=== PATIENT | male | born 1945 | race American Indian/Alaskan Native ===

== ENCOUNTER 2016-07-09 11:07 | Emergency (ER) | payer MEDICARE ==
[2016-07-09 11:53] VITALS: BP 170/91
[2016-07-09 14:10] LABS: Bilirubin,Urine NEG (Negative); Blood,Urine NEG (Negative); Ketones,Urine NEG (Negative); Leukocyte Esterase,Urine SM (Negative); Mucus,Urine FEW /HPF; Nitrite,Urine NEG (Negative); Protein,Urine <15 mg/dL mg/dL (Negative); Urobilinogen,Urine < 2.0 mg/dL (<2.0)
[2016-07-09] MEDS ORDERED: NORCO 5/325 PO ONE (14:35)
[2016-07-09] MEDS ORDERED: FLEXERIL PO ONE (14:35)
[2016-07-09] MEDS ORDERED: MOTRIN PO ONE (14:35)
--- NOTE | 2016-07-09 18:08 | Emergency Department Report ---
Entered by PARRIS GRUBBS, acting as scribe for CARLINE SMITH PA. ED Back Pain/Injury HPI - General Chief Complaint: Back Pain/Injury Stated Complaint: BACK PAIN Time Seen by Provider: 07/09/16 13:07 Source: patient Limitations: No Limitations - History of Present Illness Initial Comments: 70 year old male with PMHx chronic back pain presents to the ED for evaluation of intermittent sharp right low back pain for 1 week. Present epsiode began after lifting a heavy object; he describes pain as intermittent, sharp pain and rates discomfort as a 10/10 in severity. Initial back pain began post injury 1.5 years ago that was followed by orthopedic. Patient reports PCP Dr. Blanc manages pain Rx. Denies numbness, weakness, paresthesias. Denies bowel or bladder incontinence. Denies radiation of pain to legs, urinary symptoms, abdominal pain, chest pain, shortness of breath, fever, N/V. MD Complaint: back pain Onset/Timin -: week(s) Similar Symptoms Previously: Yes (chronic back pain secondary to injury 1.5 years ago) Place: home Radiation: none Severity scale (0 -10): 10 Quality: sharp Consistency: intermittent Context: while lifting (heavy object) Associated Symptoms: denies: weakness, chest pain, numbness, difficulty urinating, incontinence, fever/chills, abdominal pain, nausea/vomiting, shortness of breath Treatments Prior to Arrival: other (back brace, no OTC or Rx pain relievers) - Related Data Home Medications Medication Instructions Recorded Confirmed Last Taken Hydrochlorothiazide [HCTZ] 25 mg PO QDAY 12/30/14 12/30/14 Unknown Previous Rx's Medication Instructions Recorded Last Taken Type glipiZIDE [glipiZIDE ER] 5 mg PO QAM #30 tab.er.24 01/13/13 08/29/13 Rx Famotidine [Pepcid] 20 mg PO DAILY #8 tablet 08/30/13 Unknown Rx amLODIPine [Norvasc] 5 mg PO DAILY #30 tab 08/30/13 Unknown Rx Aspirin [Aspirin BABY CHEW TAB] 81 mg PO QDAY #30 tab.chew 01/01/15 Unknown Rx Simvastatin [Zocor TAB] 20 mg PO QHS #30 tablet 01/01/15 Unknown Rx Naproxen [Naprosyn] 500 mg PO BID #30 tablet 07/09/16 Unknown Rx Nitrofurantoin [place]/M-Cryst 100 mg PO Q12HR #10 capsule 07/09/16 Unknown Rx [Macrobid CAP] methOCARBAMOL [Robaxin TAB] 500 mg PO BID #14 tab 07/09/16 Unknown Rx Allergies Allergy/AdvReac Type Severity Reaction Status Date / Time Penicillins Allergy Rash Verified 07/09/16 11:48 lisinopril AdvReac Angioedema Verified 07/09/16 11:48 ED Review of Systems ROS: Stated complaint: BACK PAIN Other details as noted in HPI Comment: All other systems reviewed and negative Constitutional: denies: chills, fever Respiratory: denies: shortness of breath Cardiovascular: denies: chest pain Gastrointestinal: denies: abdominal pain, nausea, vomiting, diarrhea Genitourinary: denies: urgency, dysuria, frequency, hematuria Musculoskeletal: back pain (right low back pain) Neurological: denies: weakness, numbness, paresthesias ED Past Medical Hx - Past Medical History Hx Hypertension: Yes Hx CVA: Yes (no deficits) Hx Diabetes: Yes - Surgical History Additional Surgical History: Jaw surgery - Social History Smoking Status: Never Smoker Substance Use Type: None - Medications Home Medications: Home Medications Medication Instructions Recorded Confirmed Last Taken Type glipiZIDE [glipiZIDE ER] 5 mg PO QAM #30 tab.er.24 01/13/13 12/30/14 08/29/13 Rx Famotidine [Pepcid] 20 mg PO DAILY #8 tablet 08/30/13 12/30/14 Unknown Rx amLODIPine [Norvasc] 5 mg PO DAILY #30 tab 08/30/13 12/30/14 Unknown Rx Hydrochlorothiazide [HCTZ] 25 mg PO QDAY 12/30/14 12/30/14 Unknown History Aspirin [Aspirin BABY CHEW TAB] 81 mg PO QDAY #30 tab.chew 01/01/15 Unknown Rx Simvastatin [Zocor TAB] 20 mg PO QHS #30 tablet 01/01/15 Unknown Rx Naproxen [Naprosyn] 500 mg PO BID #30 tablet 07/09/16 Unknown Rx Nitrofurantoin [place]/M-Cryst 100 mg PO Q12HR #10 capsule 07/09/16 Unknown Rx [Macrobid CAP] methOCARBAMOL [Robaxin TAB] 500 mg PO BID #14 tab 07/09/16 Unknown Rx ED Physical Exam - General Limitations: No Limitations General appearance: other (The patient is well-developed and well-nourished. Patient is in NAD.) - Head Head exam: Present: atraumatic, normocephalic - Respiratory Respiratory exam: Present: normal lung sounds bilaterally. Absent: respiratory distress, wheezes, rales, rhonchi - Cardiovascular Cardiovascular Exam: Present: regular rate, normal rhythm, normal heart sounds. Absent: systolic murmur, diastolic murmur, rubs, gallop - GI/Abdominal GI/Abdominal exam: Present: soft. Absent: distended, tenderness, guarding, rebound - Back Exam Back exam: Present: normal inspection, paraspinal tenderness (right lumbar). Absent: vertebral tenderness - Neurological Exam Neurological exam: Present: alert, oriented X3 - Psychiatric Psychiatric exam: Present: normal affect, normal mood ED Course Vital Signs 07/09/16 07/09/16 11:50 14:54 Temperature 98.5 F Pulse Rate 78 Respiratory 19 20 Rate Blood Pressure 170/91 O2 Sat by Pulse 99 Oximetry ED Medical Decision Making - Lab Data Vital Signs 07/09/16 07/09/16 11:50 14:54 Temperature 98.5 F Pulse Rate 78 Respiratory 19 20 Rate Blood Pressure 170/91 O2 Sat by Pulse 99 Oximetry Lab Results 07/09/16 Range/Units 13:37 Urine Color Yellow (Yellow) Urine Turbidity Clear (Clear) Urine pH 7.0 (5.0-7.0) Ur Specific [place] 1.020 (1.003-1.030) Urine Protein <15 mg/dl (Negative) mg/dL Urine Glucose (UA) Neg (Negative) mg/dL Urine Ketones Neg (Negative) mg/dL Urine Blood Neg (Negative) Urine Nitrite Neg (Negative) Urine Bilirubin Neg (Negative) Urine Urobilinogen < 2.0 (<2.0) mg/dL Ur Leukocyte Esterase Sm (Negative) Urine WBC (Auto) 5.0 (0.0-6.0) /HPF Urine RBC (Auto) 4.0 (0.0-6.0) /HPF U Epithel Cells (Auto) < 1.0 (0-13.0) /HPF Urine Mucus Few /HPF - Medical Decision Making 70 year old male presents to the ED complaining of right low back pain for 1 week. His urinalysis revealed small leukocyte esterase. Patient was given Narco, Flexeril and ibuprofen and reported symptomatic relief post medication. Referral for pain clinic has been provided. Patient is in no acute distress at this time. He will be discharged home and is encouraged to follow up with a primary care provider. He will be sent home on Macrobid, Robaxin and naproxen and is encouraged to return to the emergency room for any worsening symptoms. Critical care attestation.: If time is entered above; I have spent that time in minutes in the direct care of this critically ill patient, excluding procedure time. ED Disposition Clinical Impression: Low back pain, UTI (urinary tract infection) Disposition: DISCHARGED TO HOME OR SELFCARE Is pt being admited?: No Does the pt Need Aspirin: No Condition: Stable Instructions: Urinary Tract Infection in Men (ED), Low Back Strain (ED), Chronic Back Pain (ED) Additional Instructions: Follow-up with primary care provider and pain clinic. Return to the emergency department if symptoms worsen. Prescriptions: methOCARBAMOL [Robaxin TAB] 500 mg PO BID #14 tab Naproxen [Naprosyn] 500 mg PO BID #30 tablet Nitrofurantoin [place]/M-Cryst [Macrobid CAP] 100 mg PO Q12HR #10 capsule Referrals: PAULA CAMERON MD [Primary Care Provider] - 3-5 Days [facility] [Provider Group] - 3-5 Days Forms: Work/School Release Form(ED) Time of Disposition: 15:22 This documentation as recorded by the ROMIE russo REBEKAH,accurately reflects the service I personally performed and the decisions made by ,CARLINE SMITH PA.
== END 2016-07-09 15:31 | disposition home or self-care (01) ==
LOC: ED 11:07
DX: N39.0 Urinary tract infection, site not specified (principal); M54.5 Low back pain; I10 Essential (primary) hypertension; E11.9 Type 2 diabetes mellitus without complications; Z86.73 Personal history of transient ischemic attack (TIA), and cerebral infarction without residual deficits; Z88.0 Allergy status to penicillin; Z88.8 Allergy status to other drugs, medicaments and biological substances
CPT/HCPCS: 81001; 99282

== ENCOUNTER 2017-01-03 07:31 | Emergency (ER) | payer MEDICARE ==
[2017-01-03 08:26] LABS: Basophils % (Auto) 0.3 % (0.0-1.8); Eosinophils % (Auto) 2.3 % (0.0-4.3); Hematocrit 45.4 % (35.5-45.6); Hemoglobin 14.6 gm/dl (11.8-15.2); Mean Corpuscular HGB Conc 32 % (32-34); Mean Corpuscular Hemoglobin 27 pg (28-32); Mean Corpuscular Volume 84 fl (84-94); Platelet Count 230 K/mm3 (140-440); Red Blood Count 5.39 M/mm3 (3.65-5.03); Red Cell Distribution Width 14.2 % (13.2-15.2); White Blood Count 5.2 K/mm3 (4.5-11.0)
[2017-01-03 08:34] LABS: Anion Gap 19 mmol/L; Blood Urea Nitrogen 12 mg/dL (9-20); Carbon Dioxide 25 mmol/L (22-30); Chloride 97.2 mmol/L (98-107); Glucose 183 mg/dL (75-100); Potassium 3.9 mmol/L (3.6-5.0); Sodium 137 mmol/L (137-145)
[2017-01-03] MEDS ORDERED: COZAAR PO ONE (10:30)
[2017-01-03] MEDS ORDERED: NORVASC PO ONE (10:30)
--- NOTE | 2017-01-03 10:39 | Emergency Department Report ---
ED Dizziness HPI - General Chief Complaint: Dizziness Stated Complaint: DIZZINESS Time Seen by Provider: 01/03/17 10:04 Source: patient Mode of arrival: Ambulatory Limitations: No Limitations - History of Present Illness Initial Comments: 71-year-old male with a history of hypertension off his meds for several days. Patient states he has felt lightheaded and had some dizziness. He had some slight blurry vision. All of the symptoms are currently resolved. He denies nausea vomiting chest pain or shortness of breath. Denies any trauma. MD Complaint: lightheadedness -: Gradual Timing: intermittent Description: sense of movement, lightheadedness History of Same: Yes History of Trauma: No Severity: mild Improves With: nothing Worsens With: nothing Associated Symptoms: denies: ataxia, chest pain, confusion, cough, diaphoresis, fever/chills, loss of appetite, malaise, rash, seizure, shortness of breath, syncope, weakness - Related Data Home Medications Medication Instructions Recorded Confirmed Last Taken Hydrochlorothiazide [HCTZ] 25 mg PO QDAY 12/30/14 12/30/14 Unknown Previous Rx's Medication Instructions Recorded Last Taken Type glipiZIDE [glipiZIDE ER] 5 mg PO QAM #30 tab.er.24 01/13/13 08/29/13 Rx Famotidine [Pepcid] 20 mg PO DAILY #8 tablet 08/30/13 Unknown Rx amLODIPine [Norvasc] 5 mg PO DAILY #30 tab 08/30/13 Unknown Rx Aspirin [Aspirin BABY CHEW TAB] 81 mg PO QDAY #30 tab.chew 01/01/15 Unknown Rx Simvastatin [Zocor TAB] 20 mg PO QHS #30 tablet 01/01/15 Unknown Rx Naproxen [Naprosyn] 500 mg PO BID #30 tablet 07/09/16 Unknown Rx Nitrofurantoin [place]/M-Cryst 100 mg PO Q12HR #10 capsule 07/09/16 Unknown Rx [Macrobid CAP] methOCARBAMOL [Robaxin TAB] 500 mg PO BID #14 tab 07/09/16 Unknown Rx Losartan [Cozaar] 25 mg PO DAILY #30 tablet 01/03/17 Unknown Rx amLODIPine [Norvasc] 5 mg PO DAILY #30 tablet 01/03/17 Unknown Rx Allergies Allergy/AdvReac Type Severity Reaction Status Date / Time Penicillins Allergy Rash Verified 07/09/16 11:48 lisinopril AdvReac Angioedema Verified 07/09/16 11:48 ED Review of Systems ROS: Stated complaint: DIZZINESS Other details as noted in HPI Comment: All other systems reviewed and negative Constitutional: denies: chills, fever Eyes: denies: eye pain, eye discharge, vision change ENT: denies: ear pain, throat pain Respiratory: denies: cough, shortness of breath, wheezing Cardiovascular: denies: chest pain, palpitations Endocrine: no symptoms reported Gastrointestinal: denies: abdominal pain, nausea, diarrhea Genitourinary: denies: urgency, dysuria Musculoskeletal: denies: back pain, joint swelling, arthralgia Skin: denies: rash, lesions Neurological: denies: headache, weakness, paresthesias Psychiatric: denies: anxiety, depression Hematological/Lymphatic: denies: easy bleeding, easy bruising ED Past Medical Hx - Past Medical History Hx Hypertension: Yes Hx CVA: Yes (no deficits) Hx Diabetes: Yes - Surgical History Additional Surgical History: Jaw surgery - Family History Family history: no significant - Social History Smoking Status: Never Smoker Substance Use Type: None - Medications Home Medications: Home Medications Medication Instructions Recorded Confirmed Last Taken Type glipiZIDE [glipiZIDE ER] 5 mg PO QAM #30 tab.er.24 01/13/13 12/30/14 08/29/13 Rx Famotidine [Pepcid] 20 mg PO DAILY #8 tablet 08/30/13 12/30/14 Unknown Rx amLODIPine [Norvasc] 5 mg PO DAILY #30 tab 08/30/13 12/30/14 Unknown Rx Hydrochlorothiazide [HCTZ] 25 mg PO QDAY 12/30/14 12/30/14 Unknown History Aspirin [Aspirin BABY CHEW TAB] 81 mg PO QDAY #30 tab.chew 01/01/15 Unknown Rx Simvastatin [Zocor TAB] 20 mg PO QHS #30 tablet 01/01/15 Unknown Rx Naproxen [Naprosyn] 500 mg PO BID #30 tablet 07/09/16 Unknown Rx Nitrofurantoin [place]/M-Cryst 100 mg PO Q12HR #10 capsule 07/09/16 Unknown Rx [Macrobid CAP] methOCARBAMOL [Robaxin TAB] 500 mg PO BID #14 tab 07/09/16 Unknown Rx Losartan [Cozaar] 25 mg PO DAILY #30 tablet 01/03/17 Unknown Rx amLODIPine [Norvasc] 5 mg PO DAILY #30 tablet 01/03/17 Unknown Rx ED Physical Exam - General Limitations: No Limitations General appearance: alert, in no apparent distress - Head Head exam: Present: atraumatic, normocephalic - Eye Eye exam: Present: normal appearance. Absent: scleral icterus, conjunctival injection - ENT ENT exam: Present: mucous membranes moist - Neck Neck exam: Present: normal inspection - Respiratory Respiratory exam: Present: normal lung sounds bilaterally. Absent: respiratory distress - Cardiovascular Cardiovascular Exam: Present: regular rate, normal rhythm. Absent: systolic murmur, diastolic murmur, rubs, gallop - GI/Abdominal GI/Abdominal exam: Present: soft, normal bowel sounds - Rectal Rectal exam: Present: deferred - Extremities Exam Extremities exam: Present: normal inspection - Back Exam Back exam: Present: normal inspection - Neurological Exam Neurological exam: Present: alert, oriented X3, normal gait. Absent: motor sensory deficit - Psychiatric Psychiatric exam: Present: normal affect, normal mood - Skin Skin exam: Present: warm, dry, intact, normal color. Absent: rash ED Course Vital Signs 01/03/17 01/03/17 01/03/17 07:35 07:39 11:03 Temperature 98.2 F 98.2 F 97.7 F Pulse Rate 71 71 66 Respiratory 16 16 18 Rate Blood Pressure 170/83 Blood Pressure 170/83 177/99 [Right] O2 Sat by Pulse 100 100 98 Oximetry 01/03/17 11:27 Temperature Pulse Rate 70 Respiratory Rate Blood Pressure 175/80 Blood Pressure [Right] O2 Sat by Pulse Oximetry ED Medical Decision Making - Lab Data Result diagrams: 01/03/17 07:52 01/03/17 07:52 Laboratory Results - last 24 hr 01/03/17 01/03/17 07:52 07:52 WBC 5.2 RBC 5.39 H Hgb 14.6 Hct 45.4 MCV 84 MCH 27 L MCHC 32 RDW 14.2 Plt Count 230 Lymph % (Auto) 27.9 [place] % (Auto) 9.9 H Eos % (Auto) 2.3 Baso % (Auto) 0.3 Lymph # 1.5 [place] # 0.5 Eos # 0.1 Baso # 0.0 Seg Neutrophils % 59.6 Seg Neutrophils # 3.1 Sodium 137 Potassium 3.9 Chloride 97.2 L Carbon Dioxide 25 Anion Gap 19 BUN 12 Creatinine 1.0 Estimated GFR > 60 BUN/Creatinine Ratio 12.00 Glucose 183 H Calcium 9.0 - EKG Data -: EKG Interpreted by Me - EKG Data 01/03/17 10:37 Sinus 62 and normal axis normal intervals and no ST-T wave changes - Medical Decision Making 71-year-old male here with complaints of lightheadedness and blurry vision after lack of blood pressure medicines for several days. Denies fevers chills nausea vomiting. No chest pain. Do not suspect ACS. EKG is nonischemic. Plan to check troponin 1. If negative plan to discharge home on Norvasc and losartan which was his prior medications. Portions of this chart were dictated with dictation software. There may be dictation errors contained within this note. Critical care attestation.: If time is entered above; I have spent that time in minutes in the direct care of this critically ill patient, excluding procedure time. ED Disposition Clinical Impression: Lightheadedness, Hypertension Disposition: DC-01 TO HOME OR SELFCARE Condition: Stable Instructions: Hypertension (ED) Additional Instructions: Follow-up with your primary care physician next week. Prescriptions: amLODIPine [Norvasc] 5 mg PO DAILY #30 tablet Losartan [Cozaar] 25 mg PO DAILY #30 tablet
[2017-01-03 11:28] VITALS: BP 175/80
== END 2017-01-03 12:07 | disposition home or self-care (01) ==
LOC: ED 07:31
DX: R42 Dizziness and giddiness (principal); I10 Essential (primary) hypertension; E11.9 Type 2 diabetes mellitus without complications; I63.9 Cerebral infarction, unspecified; Z79.82 Long term (current) use of aspirin; Z88.0 Allergy status to penicillin; Z88.8 Allergy status to other drugs, medicaments and biological substances
CPT/HCPCS: 36415; 80048; 82962; 84484; 85025; 93005; 93010; 99284

== ENCOUNTER 2017-04-07 08:12 | Emergency (ER) | payer MEDICARE ==
[2017-04-07 08:18] VITALS: BP 168/87
[2017-04-07 09:54] LABS: Bilirubin,Urine NEG (Negative); Blood,Urine SM (Negative); Ketones,Urine NEG (Negative); Leukocyte Esterase,Urine NEG (Negative); Mucus,Urine FEW /HPF; Nitrite,Urine NEG (Negative); Protein,Urine <15 mg/dL mg/dL (Negative); Urobilinogen,Urine < 2.0 mg/dL (<2.0); WBC,Urine < 1.0 /HPF (0.0-6.0)
--- NOTE | 2017-04-07 10:07 | Emergency Department Report ---
HPI - General Chief Complaint: Pain General Time Seen by Provider: 04/07/17 09:38 - HPI HPI: This is a 71-year-old male with a history of blood pressure controlled with medication who presents to ED complaining of right sided low back pain 2 days. Patient states that he has a history of getting muscle spasms and believes that this is what is causing his pain. Patient describes pain as intermittent, spasmodic in nature that comes and goes throughout the day. Patient denies any radiation elsewhere and states it is localized to his right lower back. He denies fevers/chills/fall/trauma/dysuria/hematuria/chest pain/shortness of breath dizziness or any other problems. ED Past Medical Hx - Past Medical History Hx Hypertension: Yes Hx CVA: Yes (no deficits) Hx Diabetes: Yes Hx Arthritis: No - Surgical History Additional Surgical History: Jaw surgery - Social History Smoking Status: Never Smoker - Medications Home Medications: Home Medications Medication Instructions Recorded Confirmed Last Taken Type glipiZIDE [glipiZIDE ER] 5 mg PO QAM #30 tab.er.24 01/13/13 03/02/17 08/29/13 Rx Famotidine [Pepcid] 20 mg PO DAILY #8 tablet 08/30/13 03/02/17 Unknown Rx Simvastatin [Zocor TAB] 20 mg PO QHS #30 tablet 01/01/15 03/02/17 Unknown Rx Losartan [Cozaar] 25 mg PO DAILY #30 tablet 01/03/17 03/02/17 Unknown Rx amLODIPine [Norvasc] 5 mg PO DAILY #30 tablet 01/03/17 03/02/17 Unknown Rx Aspirin [Aspirin BABY CHEW TAB] 81 mg PO QDAY 03/02/17 03/02/17 Unknown History Aspirin [Aspirin TAB] 325 mg PO QDAY #30 tablet 03/04/17 Unknown Rx HYDROcodone/ACETAMINOPHEN [[place] 1 each PO Q6H PRN #12 tablet 03/04/17 Unknown Rx 10-325 Tablet] Cyclobenzaprine [Flexeril] 10 mg PO QHS PRN #20 tablet 04/07/17 Unknown Rx Naproxen [Naprosyn TAB] 500 mg PO BID #30 tablet 04/07/17 Unknown Rx ED Review of Systems ROS: Stated complaint: PAIN IN SIDE Other details as noted in HPI Constitutional: denies: chills, fever Eyes: denies: eye pain, eye discharge, vision change ENT: denies: ear pain, throat pain Respiratory: denies: cough, shortness of breath, wheezing Cardiovascular: denies: chest pain, palpitations Endocrine: no symptoms reported Gastrointestinal: denies: abdominal pain, nausea, vomiting, diarrhea Genitourinary: denies: urgency, dysuria Musculoskeletal: back pain, myalgia. denies: joint swelling, arthralgia Skin: denies: rash, lesions Neurological: denies: headache, weakness, numbness, paresthesias, confusion, abnormal gait Psychiatric: denies: anxiety, depression Hematological/Lymphatic: denies: easy bleeding, easy bruising Physical Exam - Physical Exam Vital Signs: Vital Signs 04/07/17 08:16 Temperature 97.5 F L Pulse Rate 78 Respiratory 18 Rate Blood Pressure 168/87 O2 Sat by Pulse 97 Oximetry Physical Exam: GENERAL: Alert and oriented x3, no apparent distress, Normal Gait, atraumatic. NECK: Supple. Non edematous, No lymphadenopathy or thyromegaly. No C-spine tenderness LUNGS: Symetrical with respiration, No wheezing, no rales or crackles, CTAB. HEART: S1, S2 present, regular rate and rhythm without murmur, no rubs, no gallops. Non tender to palpation ABDOMEN: No organomegaly was noted,Positive bowel sounds, soft, and non- distended. . Nontender to palpation on all Quadrants, NO CVA tenderness. BACK: Full range of motion, no spinal tenderness, tender to palpation of the latissimus dorsi muscles of the right. EXTREMITIES/MUSCULOSKELETAL: No cyanosis, clubbing, rash, lesions or edema. Full ROM bilaterally. UE/LE Pulses 2+ bilaterally. NEUROLOGIC: The patient is cooperative with no focal neurologic deficits. SKIN: Warm and dry, No lesions, No ulceration or induration present. ED Course Vital Signs 04/07/17 08:16 Temperature 97.5 F L Pulse Rate 78 Respiratory 18 Rate Blood Pressure 168/87 O2 Sat by Pulse 97 Oximetry ED Medical Decision Making - Medical Decision Making 71-year-old male presents with low back myalgia ED course: I discussed the patient's go home and take his medication for his blood pressure. Patient exhibits no signs of chest pain dizziness but much elevated blood pressure and ED if he has not taken his blood pressure medication today. Other than elevated blood pressure Vital signs are normal, patient is in no acute distress Discussed with patient follow-up with primary care physician. Discussed the patient and take medications as prescribed. Patient has no neurological deficit. Patient is alert and oriented 3 and understands all instructions given. Discussed drowsiness effect of Flexeril makes her drowsy and not to operate machinery while taking flexeril Critical care attestation.: If time is entered above; I have spent that time in minutes in the direct care of this critically ill patient, excluding procedure time. ED Disposition Clinical Impression: Muscle spasm, Myalgia Disposition: DC- TO HOME OR SELFCARE Is pt being admited?: No Does the pt Need Aspirin: No Condition: Stable Instructions: Trigger Point Pain (ED), Musculoskeletal Pain (ED) Additional Instructions: Make sure to follow up with the primary care physician as discussed. Take all your medications as you've been prescribed. If you have any worsening symptoms or develop new symptoms please return to ED immediately. Prescriptions: Cyclobenzaprine [Flexeril] 10 mg PO QHS PRN #20 tablet PRN Reason: Muscle Spasm Naproxen [Naprosyn TAB] 500 mg PO BID #30 tablet Referrals: PRIMARY CARE, [Primary Care Provider] - 3-5 Days [facility] [Outside] - 3-5 Days Forms: Work/School Release Form(ED) Time of Disposition: 10:08
== END 2017-04-07 10:23 | disposition home or self-care (01) ==
LOC: ED 08:12
DX: M62.838 Other muscle spasm (principal); M79.1 Myalgia; I10 Essential (primary) hypertension; E11.9 Type 2 diabetes mellitus without complications
CPT/HCPCS: 81001; 99283